=== PATIENT | female | born 1945 | race Caucasian/White ===

== ENCOUNTER → 2024-12-08 | Outpatient (BNVA) | payer MEDICARE, MEDICAID, SELFPAY | END | disposition home or self-care (01) | PROVIDERS: PCP Nurse Practitioner Family; Referring Provider Nurse Practitioner Family; Visit Provider Urology | DX: N31.9 Neuromuscular dysfunction of bladder, unspecified (principal); Z87.440 Personal history of urinary (tract) infections; G20.C Parkinsonism, unspecified; E11.9 Type 2 diabetes mellitus without complications; I10 Essential (primary) hypertension; G40.909 Epilepsy, unspecified, not intractable, without status epilepticus; E66.9 Obesity, unspecified; Z68.32 Body mass index [BMI] 32.0-32.9, adult; E78.00 Pure hypercholesterolemia, unspecified | CPT/HCPCS: 81003; 99202; G0463 ==

== ENCOUNTER → 2025-01-13 | Outpatient (BNVA) | payer MEDICARE, MEDICAID, SELFPAY | END | disposition home or self-care (01) | PROVIDERS: PCP Nurse Practitioner Family; Referring Provider Nurse Practitioner Family; Visit Provider Urology | DX: N35.92 Unspecified urethral stricture, female (principal); Z87.440 Personal history of urinary (tract) infections; I10 Essential (primary) hypertension; E78.00 Pure hypercholesterolemia, unspecified; E11.9 Type 2 diabetes mellitus without complications | CPT/HCPCS: 52281; 81003; 96372; A4217; A4649; C1894; J1580; A9270 ==

== ENCOUNTER → 2025-07-14 | Outpatient (BNVA) | payer MEDICARE, MEDICAID, SELFPAY | END | disposition home or self-care (01) | PROVIDERS: PCP Nurse Practitioner Family; Referring Provider Nurse Practitioner Family; Visit Provider Urology | DX: N39.0 Urinary tract infection, site not specified (principal); E11.9 Type 2 diabetes mellitus without complications; I10 Essential (primary) hypertension; G20.C Parkinsonism, unspecified; N31.9 Neuromuscular dysfunction of bladder, unspecified; E66.3 Overweight; Z68.35 Body mass index [BMI] 35.0-35.9, adult; Z86.69 Personal history of other diseases of the nervous system and sense organs | CPT/HCPCS: 81003; 99212; G0463 ==